=== PATIENT | female | born 1960 | race Caucasian/White ===

== ENCOUNTER 2017-09-01 09:48 | Day surgery (SDC) | payer MEDICARE, MEDICAID ==
[~2017-09-01] VITALS: Ht 160 cm; Wt 88.0 kg
[2017-09-01] VITALS (13 sets, daily range): BP systolic 69–137; BP diastolic 42–82
[~2017-09-01 09:48] MED LIST: ALPR-624 PO; CLA10T PO; ESOM40CA PO; FURO80TA87 PO; KEP500T PO; LEVA15HF4 IH; LISI-222 PO; MOME13HF2 IH; MONT10TA21 PO; POTA8TAB46 PO; STADNS NS; VENL75CA61 PO; [UNRECOGNIZED DRUG - OTHER] PO
[2017-09-01] MEDS ORDERED: ATEN25TA PO (10:38)
[2017-09-01] MEDS ORDERED: CETI10TA15 PO (10:38)
[2017-09-01] MEDS ORDERED: ROPI2TAB4 PO (10:38)
[2017-09-01] MEDS ORDERED: DIPH1TAB PO (10:38)
[2017-09-01] MEDS ORDERED: BENZ-16 PO (10:38)
[2017-09-01] MEDS ORDERED: PROM25TA14 PO (10:38)
[2017-09-01] MEDS ORDERED: HYDR-565 PO (10:38)
[2017-09-01] MEDS ORDERED: LISI40TA4 PO (10:38)
[2017-09-01] MEDS ORDERED: fentaNYL/PF 50MCG/1 ML 2ML syringe IV PRN (10:39)
[2017-09-01] MEDS ORDERED: normal saline 1000ml 1,000 ML IV SCH (10:40)
[2017-09-01] MEDS ORDERED: MIDAZolam 5mg/ml 2ml vial IV PRN (10:40)
[2017-09-01] MEDS ORDERED: pneumococcal 23-VAL P-sac vacc 25 mcg/0.5ml vial IMVAC ONE (11:06)
[2017-09-02] MEDS ORDERED: MIDAZolam 5mg/ml 2ml vial IV ONE (09:15)
[2017-09-02] MEDS ORDERED: fentaNYL/PF 50MCG/1 ML 2ML syringe IV ONE (09:15)
[2017-09-02] MEDS ORDERED: normal saline 1000ml 1,000 ML IV SCH (09:15)
== END 2017-09-01 14:45 | disposition home or self-care (01) ==
LOC: SSTAY O 09:48
PROVIDERS: ATTEND Internal Medicine Interventional Cardiology
DX: I42.1 Obstructive hypertrophic cardiomyopathy (principal); I34.0 Nonrheumatic mitral (valve) insufficiency; J45.909 Unspecified asthma, uncomplicated; I10 Essential (primary) hypertension; G47.33 Obstructive sleep apnea (adult) (pediatric); M79.7 Fibromyalgia; G43.909 Migraine, unspecified, not intractable, without status migrainosus; D84.9 Immunodeficiency, unspecified; F41.9 Anxiety disorder, unspecified; F17.210 Nicotine dependence, cigarettes, uncomplicated; K21.9 Gastro-esophageal reflux disease without esophagitis; Z89.421 Acquired absence of other right toe(s); Z98.890 Other specified postprocedural states; Z90.710 Acquired absence of both cervix and uterus; Z88.6 Allergy status to analgesic agent; Z88.2 Allergy status to sulfonamides; Z88.3 Allergy status to other anti-infective agents; Z88.7 Allergy status to serum and vaccine; Z79.899 Other long term (current) drug therapy
CPT/HCPCS: 93312; 93325; J2250; J3010; J7030; A4620

== ENCOUNTER 2020-06-06 14:51 | Day surgery (SDC) | payer MEDICARE, MEDICAID ==
[2020-06-04 16:32] LABS: BASOPHILS # (AUTO) 0.1 X10'3 (0-0.2); BASOPHILS % (AUTO) 0.8 % (0-1); EOSINOPHILS # (AUTO) 0.2 X10'3 (0-0.9); EOSINOPHILS % (AUTO) 2.5 % (0-6); HEMATOCRIT 44.1 % (35.0-45.0); HEMOGLOBIN 14.5 g/dl (12.0-16.0); LYMPHOCYTES % (AUTO) 31.6 % (21-51); MEAN CORPUSCULAR HEMOGLOBIN 29.3 PG (27.0-31.0); MEAN CORPUSCULAR HGB CONC 32.9 g/dL (33.0-36.5); MEAN CORPUSCULAR VOLUME 88.9 FL (78-98); MEAN PLATELET VOLUME 9.5 FL (7.4-10.4); MONOCYTES # (AUTO) 0.7 X10'3 (0-0.9); MONOCYTES % (AUTO) 6.8 % (2-12); NEUTROPHILS # (AUTO) 5.6 X10'3 (1.8-7.7); NEUTROPHILS % (AUTO) 58.3 % (42-75); PLATELET COUNT 210 X10'3 (140-440); RED BLOOD COUNT 4.96 X10'6 (4.20-5.60); RED CELL DISTRIBUTION WIDTH 14.1 % (11.5-14.5); WHITE BLOOD COUNT 9.6 X10'3 (4.5-11.0)
[2020-06-04 16:43] LABS: PARTIAL THROMBOPLASTIN TIME 26 SECONDS (22-32)
[2020-06-04 16:48] LABS: ALBUMIN 3.4 G/DL (3.4-5.0); ANION GAP 8 (8-16); BLOOD UREA NITROGEN 22 MG/DL (7-18); BUN/CREATININE RATIO 17.6 (6.6-38.0); CALCIUM 9.4 MG/DL (8.5-10.1); CHLORIDE 105 MMOL/L (99-107); CHOLESTEROL 174 MG/DL (0-200); CREATININE 1.25 MG/DL (0.40-0.90); GLUCOSE 85 MG/DL (70-104); HDL CHOLESTEROL 35 MG/DL (35-60); LDL CHOLESTEROL 101 MG/DL (50-100); POTASSIUM 4.7 MMOL/L (3.5-5.1); SODIUM 140 MMOL/L (135-145); TOTAL CARBON DIOXIDE 26.9 MMOL/L (24-32); TRIGLYCERIDES 272 MG/DL (20-135); eGFR 44 ML/MIN
[~2020-06-06] VITALS: Ht 160 cm; Wt 89.0 kg
[~2020-06-06 14:51] MED LIST changes: -ALPR-624 PO; +ATEN25TA PO; +BENZ-16 PO; +CETI10TA15 PO; -CLA10T PO; +DIPH1TAB PO; +HYDR-4353 PO; -KEP500T PO; -LISI-222 PO; +LISI40TA4 PO; -MOME13HF2 IH; +PROM25TA14 PO; +ROPI2TAB4 PO
[2020-06-06 15:21] VITALS: BP 115/71
[2020-06-06] MEDS ORDERED: normal saline 1,000 ML IV SCH (15:30)
[2020-06-06] MEDS ORDERED: LORazepam 0.5 MG tablet PO PRN (15:30)
[2020-06-06] MEDS ORDERED: diphenhydrAMINE 25mg capsule PO PRN (15:30)
[2020-06-06] MEDS ORDERED: LIDOcaine/PRILOcaine 5gm cream TP ONE (15:30)
== END 2020-06-06 16:10 | disposition home or self-care (01) ==
LOC: SSTAY O 14:51
PROVIDERS: ATTEND Student in an Organized Health Care Education/Training Program
DX: R07.89 Other chest pain (principal); Z53.8 Procedure and treatment not carried out for other reasons; I42.1 Obstructive hypertrophic cardiomyopathy; I10 Essential (primary) hypertension; F17.210 Nicotine dependence, cigarettes, uncomplicated; G89.29 Other chronic pain; J45.909 Unspecified asthma, uncomplicated; G43.909 Migraine, unspecified, not intractable, without status migrainosus; G47.33 Obstructive sleep apnea (adult) (pediatric); E78.5 Hyperlipidemia, unspecified; Z79.899 Other long term (current) drug therapy; Z88.5 Allergy status to narcotic agent; Z88.7 Allergy status to serum and vaccine; Z88.2 Allergy status to sulfonamides; Z88.8 Allergy status to other drugs, medicaments and biological substances; Z20.828 Contact with and (suspected) exposure to other viral communicable diseases
CPT/HCPCS: 36415; 80048; 80061; 85025; 85610; 85730

== ENCOUNTER 2020-06-08 12:13 | Day surgery (SDC) | payer MEDICARE, MEDICAID ==
[2020-06-08] VITALS (9 sets, daily range): BP systolic 91–115; BP diastolic 41–66
[~2020-06-08] VITALS: Ht 160 cm; Wt 90.8 kg
[2020-06-08] MEDS ORDERED: normal saline 1,000 ML IV SCH (12:55)
[2020-06-08] MEDS ORDERED: LORazepam 0.5 MG tablet PO PRN (12:55)
[2020-06-08] MEDS ORDERED: LIDOcaine/PRILOcaine 5gm cream TP ONE (12:55)
[2020-06-08] MEDS ORDERED: diphenhydrAMINE 25mg capsule PO PRN (12:55)
[2020-06-08] MEDS ORDERED: nitroGLYCERIN-Tridil 50MG/D5W 250 ML IV ONE (13:03)
[2020-06-08] MEDS ORDERED: iohexol 350MG/ML 100ml bottle IV ONE (13:04)
[2020-06-08] MEDS ORDERED: midazolam 2 mg/2 ml injection ONE ×2 (13:04→13:27)
[2020-06-08] MEDS ORDERED: heparin 1,000unit/ml 10ml vial 10 ML ONE (13:04)
[2020-06-08] MEDS ORDERED: verapamil 2.5 mg/ml inj IV ONE (13:04)
[2020-06-08] MEDS ORDERED: LIDOcaine 1% (10mg/ml)w/preservative injection 20ml MDV ONE (13:04)
[2020-06-08] MEDS ORDERED: fentaNYL/PF 50MCG/1 ML 2ML syringe ONE ×2 (13:04→13:28)
[2020-06-08] MEDS ORDERED: VENL150C2 PO (13:05)
[2020-06-08] MEDS ORDERED: METO100T7 PO (13:05)
[2020-06-08] MEDS ORDERED: DIPH25CA83 PO (13:05)
[2020-06-08] MEDS ORDERED: PRED1TAB PO (13:05)
[2020-06-08] MEDS ORDERED: OMEP40CA13 PO (13:05)
[2020-06-08] MEDS ORDERED: proCHLORperazine 10 MG/2 ml inj ONE (13:27)
[2020-06-08] MEDS ORDERED: ondansetron/PF 4mg/2ml inj IV PRN (14:20)
[2020-06-08] MEDS ORDERED: normal saline 1000ml 1,000 ML IV SCH (14:20)
[2020-06-08] MEDS ORDERED: proCHLORperazine 10 MG/2 ml inj IV PRN (14:25)
[2020-06-08] MEDS ORDERED: HYDROcodone/acetaminophen 10/325mg tab PO PRN (14:25)
[2020-06-08] MEDS ORDERED: OXAZEpam 15mg capsule PO PRN (14:25)
[2020-06-08] MEDS ORDERED: nitroGLYCERIN 0.4mg SUBLingual tab SL PRN (14:25)
[2020-06-08] MEDS ORDERED: HYDROcodone/acetaminophen 5mg/325mg tablet PO PRN (14:25)
== END 2020-06-08 17:15 | disposition home or self-care (01) ==
LOC: SSTAY O 12:13
PROVIDERS: ATTEND Student in an Organized Health Care Education/Training Program
DX: R07.89 Other chest pain (principal); I25.10 Atherosclerotic heart disease of native coronary artery without angina pectoris; G47.33 Obstructive sleep apnea (adult) (pediatric); J45.909 Unspecified asthma, uncomplicated; I10 Essential (primary) hypertension; I42.9 Cardiomyopathy, unspecified; E78.5 Hyperlipidemia, unspecified; G43.909 Migraine, unspecified, not intractable, without status migrainosus; Z79.899 Other long term (current) drug therapy; Z88.5 Allergy status to narcotic agent; Z88.8 Allergy status to other drugs, medicaments and biological substances; Z88.2 Allergy status to sulfonamides; Z88.7 Allergy status to serum and vaccine
CPT/HCPCS: 93005; 93458; 99152; C1769; C1894; J0780; J1644; J2001; J2250; J3010; J7030; Q0163; Q9967; A4620; A5120; J3490

== ENCOUNTER 2020-09-01 19:14 | Emergency (ER) | payer MEDICARE, MEDICAID ==
[~2020-09-01] VITALS: Ht 160 cm; Wt 83.6 kg
[~2020-09-01 19:14] MED LIST changes: -ATEN25TA PO; +BUDE10.22 INH; -CETI10TA15 PO; -DIPH1TAB PO; +DIPH25CA83 PO; +DOCU100C40 PO; -ESOM40CA PO; -HYDR-4353 PO; -LEVA15HF4 IH; +LISI40TA13 PO; -LISI40TA4 PO; +METO100T7 PO; +OMEP40CA13 PO; -PROM25TA14 PO; -STADNS NS; +VENL150C2 PO; -VENL75CA61 PO
--- NOTE | 2020-09-01 19:39 | NUR ---
right groin pain with 4 day old spider bite on right posterior calf
[2020-09-01] MEDS ORDERED: CEPH250T PO (20:52)
[2020-09-01] MEDS ORDERED: SULF1TAB49 PO (20:52)
[2020-09-01 21:11] VITALS: BP 118/67
== END 2020-09-01 21:14 | disposition home or self-care (01) ==
LOC: ER 19:16
DX: L03.818 Cellulitis of other sites (principal); I10 Essential (primary) hypertension; J45.909 Unspecified asthma, uncomplicated; K21.9 Gastro-esophageal reflux disease without esophagitis; E11.9 Type 2 diabetes mellitus without complications; G89.29 Other chronic pain; F41.9 Anxiety disorder, unspecified; F32.9 Major depressive disorder, single episode, unspecified; Z90.710 Acquired absence of both cervix and uterus; Z98.890 Other specified postprocedural states; Z88.1 Allergy status to other antibiotic agents; Z88.5 Allergy status to narcotic agent; Z88.8 Allergy status to other drugs, medicaments and biological substances; Z79.2 Long term (current) use of antibiotics; Z79.899 Other long term (current) drug therapy
CPT/HCPCS: 99283

== ENCOUNTER 2022-02-08 13:20 | Emergency (ER) | payer MEDICARE, MEDICAID ==
[~2022-02-08] VITALS: Ht 160 cm; Wt 85.3 kg
[~2022-02-08 13:20] MED LIST changes: -BENZ-16 PO; +BENZ200C53 PO; -BUDE10.22 INH; -DIPH25CA83 PO; -DOCU100C40 PO; +FLUT1BLS16 IH; -FURO80TA87 PO; -LISI40TA13 PO; +METO-411 PO; -METO100T7 PO; +OMEP20CA15 PO; -OMEP40CA13 PO; -POTA8TAB46 PO; -ROPI2TAB4 PO; +ROPI2TAB7 PO; +SENN-223 PO; +SUMA50TA17 PO; -VENL150C2 PO; +VENL150C4 PO; -[UNRECOGNIZED DRUG - OTHER] PO
--- NOTE | 2022-02-08 15:17 | NUR ---
Pt requesting updated wait time, explained inability to give wait time. [place] and pillow provided.
--- NOTE | 2022-02-08 16:11 | NUR ---
Patient states she doesn't want IV insertion/medications. PA made aware.
[2022-02-08] MEDS ORDERED: diphenhydrAMINE 25mg capsule PO ONE (16:35)
[2022-02-08] MEDS ORDERED: ketorolac trometh inj. 60 MG/2 ML VIAL IM ONE (16:35)
[2022-02-08] MEDS ORDERED: proCHLORperazine 10mg tablet PO ONE (16:35)
[2022-02-08 17:05] VITALS: BP 131/72
--- NOTE | 2022-02-08 17:25 | NUR ---
Patient given pain medication and ankle splint place, but refused to stay for med watch, patient stated "I want to go home and my sister will be picking me up". Medication given prior to patient leaving, PA made aware.
--- NOTE | 2022-02-08 17:25 | NUR ---
[facility] blankenshipbertram in [facility] - 02/08/22 at 1735 by EZRA Patient given pain medication and ankle splint place, but refused to stay for [employer], patient stated "I want to go home and my sister will be picking me up".
== END 2022-02-08 17:30 | disposition home or self-care (01) ==
LOC: ER 13:21
DX: G43.909 Migraine, unspecified, not intractable, without status migrainosus (principal); I10 Essential (primary) hypertension; K21.9 Gastro-esophageal reflux disease without esophagitis; E11.9 Type 2 diabetes mellitus without complications; G89.29 Other chronic pain; Z88.7 Allergy status to serum and vaccine; Z91.041 Radiographic dye allergy status; Z88.2 Allergy status to sulfonamides; Z88.5 Allergy status to narcotic agent; Z90.710 Acquired absence of both cervix and uterus
CPT/HCPCS: 96372; 99283; J1885; Q0163; Q0164

== ENCOUNTER 2022-08-14 16:51 | Emergency (ER) | payer MEDICARE, MEDICAID ==
[~2022-08-14] VITALS: Ht 160 cm; Wt 84.1 kg
[2022-08-14 16:54] VITALS: BP 174/69
[2022-08-14] MEDS ORDERED: amoxicillin 250mg capsule PO ONE (18:15)
[2022-08-14] MEDS ORDERED: AMOX500C2 PO (18:18)
== END 2022-08-14 18:34 | disposition home or self-care (01) ==
LOC: ER 16:52
DX: L03.115 Cellulitis of right lower limb (principal); G43.909 Migraine, unspecified, not intractable, without status migrainosus; J45.909 Unspecified asthma, uncomplicated; K21.9 Gastro-esophageal reflux disease without esophagitis; E11.9 Type 2 diabetes mellitus without complications; F31.9 Bipolar disorder, unspecified; I10 Essential (primary) hypertension; Z90.49 Acquired absence of other specified parts of digestive tract; Z88.1 Allergy status to other antibiotic agents; Z88.2 Allergy status to sulfonamides; Z88.6 Allergy status to analgesic agent; Z88.5 Allergy status to narcotic agent; Z79.899 Other long term (current) drug therapy; Z79.1 Long term (current) use of non-steroidal anti-inflammatories (NSAID); Z79.2 Long term (current) use of antibiotics
CPT/HCPCS: 93971; 99284

== ENCOUNTER 2022-12-03 20:01 | Emergency (ER) | payer MEDICARE, MEDICAID ==
[~2022-12-03] VITALS: Ht 160 cm; Wt 84.8 kg
[~2022-12-03 20:01] MED LIST changes: +MONT-48 PO; -MONT10TA21 PO
[2022-12-03 20:12] VITALS: BP 144/76
[2022-12-03 20:38] LABS: BASOPHILS # (AUTO) 0.1 X10'3 (0-0.2); BASOPHILS % (AUTO) 1.1 % (0-1); EOSINOPHILS # (AUTO) 0.3 X10'3 (0-0.9); EOSINOPHILS % (AUTO) 2.8 % (0-6); HEMOGLOBIN 13.3 g/dl (12.0-16.0); LYMPHOCYTES # (AUTO) 3.2 X10'3 (1.1-4.8); LYMPHOCYTES % (AUTO) 27.5 % (21-51); MEAN CORPUSCULAR HEMOGLOBIN 28.4 PG (27.0-31.0); MEAN CORPUSCULAR HGB CONC 33.1 g/dL (33.0-36.5); MEAN CORPUSCULAR VOLUME 85.6 FL (78-98); MEAN PLATELET VOLUME 9.1 FL (7.4-10.4); MONOCYTES # (AUTO) 0.8 X10'3 (0-0.9); MONOCYTES % (AUTO) 6.7 % (2-12); NEUTROPHILS # (AUTO) 7.1 X10'3 (1.8-7.7); NEUTROPHILS % (AUTO) 61.9 % (42-75); PLATELET COUNT 266 X10'3 (140-440); RED BLOOD COUNT 4.68 X10'6 (4.20-5.60); WHITE BLOOD COUNT 11.5 X10'3 (4.5-11.0)
[2022-12-03 20:51] LABS: ALANINE AMINOTRANSFERASE 28 U/L (12-78); ALBUMIN 3.3 G/DL (3.4-5.0); ALBUMIN/GLOBULIN RATIO 0.8 (1.1-1.5); ALKALINE PHOSPHATASE 87 IU/L (46-116); ANION GAP 8 (8-16); ASPARTATE AMINO TRANSFERASE 21 U/L (10-37); BILIRUBIN,TOTAL 0.2 MG/DL (0.1-1.0); BLOOD UREA NITROGEN 20 MG/DL (7-18); BUN/CREATININE RATIO 20.4 (10.0-20.0); CHLORIDE 102 MMOL/L (99-107); CREATININE 0.98 MG/DL (0.40-0.90); LIPASE 177 U/L (73-393); POTASSIUM 3.5 MMOL/L (3.5-5.1); SODIUM 140 MMOL/L (135-145); TOTAL CARBON DIOXIDE 30.4 MMOL/L (24-32); TOTAL PROTEIN 7.5 G/DL (6.4-8.2); eGFR 57 ML/MIN
[2022-12-03 20:55] LABS: CALCIUM 8.8 MG/DL (8.5-10.1)
[2022-12-03 21:00] LABS: GLUCOSE 113 MG/DL (70-104)
== END 2022-12-04 00:20 | disposition left against medical advice (07) ==
LOC: ER 20:02
DX: K62.5 Hemorrhage of anus and rectum (principal); Z53.21 Procedure and treatment not carried out due to patient leaving prior to being seen by health care provider
CPT/HCPCS: 36415; 80053; 83690; 85025; 99281

== ENCOUNTER 2024-02-11 21:56 | Emergency (ER) | payer MEDICARE, MEDICAID ==
[~2024-02-11] VITALS: Ht 160 cm; Wt 83.7 kg
[~2024-02-11 21:56] MED LIST changes: +ROPI2TAB53 PO; -ROPI2TAB7 PO; -VENL150C4 PO; +VENL150C5 PO
[2024-02-11 22:14] VITALS: TEMP 98
[2024-02-11 22:45] LABS: BASOPHILS % (AUTO) 0.4 % (0-1); EOSINOPHILS # (AUTO) 0.2 X10'3 (0-0.9); EOSINOPHILS % (AUTO) 2.1 % (0-6); HEMATOCRIT 33.8 % (35.0-45.0); HEMOGLOBIN 10.9 g/dl (12.0-16.0); LYMPHOCYTES # (AUTO) 2.5 X10'3 (1.1-4.8); LYMPHOCYTES % (AUTO) 25.2 % (21-51); MEAN CORPUSCULAR HEMOGLOBIN 25.3 PG (27.0-31.0); MEAN CORPUSCULAR HGB CONC 32.2 g/dL (33.0-36.5); MEAN CORPUSCULAR VOLUME 78.5 FL (78-98); MEAN PLATELET VOLUME 8.9 FL (7.4-10.4); MONOCYTES # (AUTO) 0.8 X10'3 (0-0.9); MONOCYTES % (AUTO) 7.8 % (2-12); NEUTROPHILS # (AUTO) 6.4 X10'3 (1.8-7.7); NEUTROPHILS % (AUTO) 64.5 % (42-75); PLATELET COUNT 245 X10'3 (140-440); RED CELL DISTRIBUTION WIDTH 15.5 % (11.5-14.5)
[2024-02-11 23:00] LABS: ALANINE AMINOTRANSFERASE 27 U/L (12-78); ALBUMIN 3.2 G/DL (3.4-5.0); ALBUMIN/GLOBULIN RATIO 0.8 (1.1-1.5); ALKALINE PHOSPHATASE 80 IU/L (46-116); ANION GAP 9 (8-16); BILIRUBIN,TOTAL 0.2 MG/DL (0.1-1.0); BLOOD UREA NITROGEN 30 MG/DL (7-18); BUN/CREATININE RATIO 21.7 (10.0-20.0); CALCIUM 8.6 MG/DL (8.5-10.1); CHLORIDE 106 MMOL/L (99-107); CREATININE 1.38 MG/DL (0.40-0.90); SODIUM 142 MMOL/L (135-145); TOTAL CARBON DIOXIDE 26.8 MMOL/L (24-32); TOTAL PROTEIN 7.4 G/DL (6.4-8.2); eCRCL 34 ML/MIN; eGFR 38 ML/MIN
[2024-02-11 23:03] LABS: GLUCOSE 98 MG/DL (70-104); POTASSIUM 3.7 MMOL/L (3.5-5.1)
[2024-02-11 23:27] LABS: ASPARTATE AMINO TRANSFERASE 15 U/L (10-37)
[2024-02-11 23:34] VITALS: BP 109/57; PULSE 74; RESP 18; O2SAT 99
[2024-02-12] MEDS ORDERED: PENI500T2 PO (00:30)
[2024-02-12] MEDS ORDERED: HYDR-3965 PO (00:30)
[2024-02-12] MEDS: penicillin V potassium 500mg tablet PO ONE (00:48)
== END 2024-02-12 00:45 | disposition home or self-care (01) ==
LOC: ER 21:57
DX: S01.512A Laceration without foreign body of oral cavity, initial encounter (principal); G43.909 Migraine, unspecified, not intractable, without status migrainosus; I10 Essential (primary) hypertension; J45.909 Unspecified asthma, uncomplicated; K21.9 Gastro-esophageal reflux disease without esophagitis; E11.9 Type 2 diabetes mellitus without complications; G89.29 Other chronic pain; F41.9 Anxiety disorder, unspecified; F32.A Depression, unspecified; Z90.710 Acquired absence of both cervix and uterus; Z98.890 Other specified postprocedural states; Z88.2 Allergy status to sulfonamides; Z88.7 Allergy status to serum and vaccine; Z88.8 Allergy status to other drugs, medicaments and biological substances; Z79.51 Long term (current) use of inhaled steroids; Z79.899 Other long term (current) drug therapy; X58.XXXA Exposure to other specified factors, initial encounter; Y93.89 Activity, other specified; Y92.89 Other specified places as the place of occurrence of the external cause; Y99.8 Other external cause status
CPT/HCPCS: 36415; 80053; 83605; 84145; 85025; 87040; 99283